=== PATIENT | male | born 1965 | race Caucasian/White ===

== ENCOUNTER 2017-10-02 13:42 | Emergency (ER) | payer SELFPAY ==
[~2017-10-02] VITALS: Ht 170.2 cm; Wt 86.4 kg
[2017-10-02] MEDS ORDERED: HYDR25TA PO (14:16)
[2017-10-02] MEDS ORDERED: ATOR10TA84 PO (14:16)
[2017-10-02] MEDS ORDERED: ASPI-1182 PO (14:16)
[2017-10-02] MEDS ORDERED: LOSA50TA37 PO (14:16)
[2017-10-02] MEDS ORDERED: OMEP20 PO (14:16)
[2017-10-02] MEDS ORDERED: ACETAMINOPHEN 325 MG TABLET PO ONE (14:30)
[2017-10-02 14:52] LABS: INFLUENZA TYPE A NEGATIVE FOR TYPE A (NEGATIVE); INFLUENZA TYPE B NEGATIVE FOR TYPE B (NEGATIVE)
[2017-10-02] MEDS ORDERED: IBUPROFEN 800 MG TABLET PO ONE (18:00)
[2017-10-02] MEDS ORDERED: SODIUM CHLORIDE 0.9% 1,000 ML IV ONE (18:00)
[2017-10-02 18:22] LABS: BASOPHILS % (AUTO) 0.3 % (0.0-2.0); EOSINOPHILS % (AUTO) 0.4 % (1.0-6.0); HEMATOCRIT 42.6 % (41-53); HEMOGLOBIN 14.9 g/dL (13.5-17.5); LYMPHOCYTES # (AUTO) 0.4 K/uL (1.0-4.8); LYMPHOCYTES % (AUTO) 5.7 % (22.0-44.0); MEAN CORPUSCULAR HEMOGLOBIN 31.8 pg (26.0-34.0); MEAN CORPUSCULAR VOLUME 91 fL (80-100); MONOCYTES # (AUTO) 0.5 K/uL (0.1-1.0); MONOCYTES % (AUTO) 7.4 % (2.0-9.0); NEUTROPHILS # (AUTO) 5.4 K/uL (1.8-7.7); NEUTROPHILS % (AUTO) 86.2 % (40.0-70.0); PLATELET COUNT (AUTO) 142 K/uL (150-450); RED BLOOD CELL COUNT(AUTO) 4.68 MIL/uL (4.50-5.90); RED CELL DISTRIBUTION WIDTH 12.8 % (11.5-14.5)
[2017-10-02 18:29] LABS: CALCIUM, TOTAL 8.4 mg/dL (8.8-10.5); CREATININE 1.44 mg/dL (0.60-1.30); POTASSIUM 3.3 mmol/L (3.5-5.1)
[2017-10-02 18:37] LABS: PLATELET MORPHOLOGY COMMENT LARGE PLTS PRESENT
[2017-10-02 19:11] VITALS: BP 118/75
== END 2017-10-02 19:18 | disposition home or self-care (01) ==
LOC: EMS 13:45
DX: J32.9 Chronic sinusitis, unspecified (principal); R03.0 Elevated blood-pressure reading, without diagnosis of hypertension; Z79.82 Long term (current) use of aspirin; Z79.899 Other long term (current) drug therapy
CPT/HCPCS: 36415; 71020; 80048; 85025; 87804; 96360; 99285; J7030

== ENCOUNTER 2023-12-23 18:18 | Emergency (ER) | payer OTHER ==
[~2023-12-23] VITALS: Ht 170.2 cm; Wt 90.9 kg
[~2023-12-23 18:18] MED LIST: ASPI-1444 PO; ATOR10TA PO; HYDR25TA2 PO; LOSA-382 PO; OMEP20 PO
[2023-12-23] MEDS ORDERED: PROPARACAINE HCL 0.5% 15 ML OPHTHALMIC SOLUTION OS ONE (22:30)
[2023-12-23] MEDS ORDERED: FLUORESCEIN SODIUM 1 MG STRIP OS ONE (22:30)
[2023-12-24] VITALS: TEMP 98.2
[2023-12-24 02:48] LABS: COVID AG,FIA SOURCE NASAL SWAB
[2023-12-24 02:57] LABS: SARS-COV2 (COVID) ANTIGEN,FIA Negative (Negative)
[2023-12-24 04:05] VITALS: BP 142/86; PULSE 86; RESP 18
== END 2023-12-24 04:06 | disposition short-term general hospital (02) ==
LOC: EMS 18:20
DX: S02.2XXA Fracture of nasal bones, initial encounter for closed fracture (principal); I10 Essential (primary) hypertension; Z20.822 Contact with and (suspected) exposure to COVID-19; Y08.89XA Assault by other specified means, initial encounter; Y93.89 Activity, other specified; Y92.89 Other specified places as the place of occurrence of the external cause; Y99.8 Other external cause status
CPT/HCPCS: 70450; 70486; 71101; 72125; 99285